=== PATIENT | male | born 1945 | race Caucasian/White ===

== ENCOUNTER 2017-05-24 12:51 | Inpatient (IN) | payer MEDICARE, BC ==
[~2017-05-24] VITALS: Ht 172.7 cm; Wt 106.6 kg
[2017-05-24] MEDS ORDERED: GABA-532 PO (13:11)
[2017-05-24] MEDS ORDERED: TRAZ-144 PO ×2 (13:11)
[2017-05-24] MEDS ORDERED: SERT100T PO (13:11)
[2017-05-24] MEDS ORDERED: OMEG-130 PO (13:11)
[2017-05-24] MEDS ORDERED: DONE5TAB34 PO (13:11)
[2017-05-24] MEDS ORDERED: LOSA100T15 PO (13:11)
[2017-05-24] MEDS ORDERED: CARV3.12 PO (13:11)
[2017-05-24] MEDS ORDERED: MEMA28CA PO (13:11)
[2017-05-24] MEDS ORDERED: DIVA125T2 PO (13:11)
[2017-05-24] MEDS ORDERED: QUET25TA PO (13:11)
[2017-05-24] MEDS ORDERED: CHOL200078 PO (13:11)
[2017-05-24] MEDS ORDERED: ASPI1CPM PO (13:11)
[2017-05-24] MEDS ORDERED: NAPH15DR62 OP (13:11)
[2017-05-24] MEDS ORDERED: ONDA4TAB5 PO (13:11)
[2017-05-24] MEDS ORDERED: ROSU10TA27 PO (13:11)
[2017-05-24] MEDS ORDERED: ACET-2605 PO (13:11)
[2017-05-24] MEDS ORDERED: FINA5TAB3 PO (13:11)
[2017-05-24] MEDS ORDERED: GUAI120S17 PO (13:11)
[2017-05-24] MEDS ORDERED: AMLO5TAB2 PO (13:11)
[2017-05-24] MEDS ORDERED: LOPE2TAB57 PO (13:11)
[2017-05-24 13:56] LABS: BASOPHILS % (AUTO) 0.4 % (0.0-2.0); EOSINOPHILS # (AUTO) 0.1 K/uL (0.0-0.7); EOSINOPHILS % (AUTO) 0.5 % (0.0-7.0); HEMATOCRIT 48.3 % (36.7-47.1); HEMOGLOBIN 16.2 g/dL (12.5-16.3); LYMPHOCYTES # (AUTO) 0.8 K/uL (20.0-40.0); LYMPHOCYTES % (AUTO) 7.1 % (20.5-51.5); MEAN CORPUSCULAR HEMOGLOBIN 31.9 uug (23.8-33.4); MEAN CORPUSCULAR HGB CONC 34 g/dL (32.5-36.3); MEAN CORPUSCULAR VOLUME 95.1 fL (73.0-96.2); MONOCYTES # (AUTO) 1.2 K/uL (2.0-10.0); MONOCYTES % (AUTO) 10.4 % (0.0-11.0); NEUTROPHILS % (AUTO) 81.6 % (38.5-71.5); PLATELET COUNT (AUTO) 190 K/uL (152-348); RED BLOOD CELL COUNT(AUTO) 5.08 MIL/uL (4.06-5.63); WHITE BLOOD COUNT (AUTO) 11.1 K/uL (3.6-10.2)
[2017-05-24 14:09] LABS: ALANINE AMINOTRANSFERASE 52 U/L (16-63); ALKALINE PHOSPHATASE 63 U/L (50-136); ASPARTATE AMINOTRANSFERASE 43 U/L (15-37); BILIRUBIN,DIRECT 0.2 mg/dL (0.0-0.2); BILIRUBIN,TOTAL 0.6 mg/dL (0.2-1.0); CARBON DIOXIDE 25 mmol/L (21-32); CHLORIDE 104 mmol/L (98-107); CREATININE 1.3 mg/dL (0.6-1.3); GLUCOSE 115 mg/dL (74-106); POTASSIUM 4.2 mmol/L (3.5-5.1); TOTAL PROTEIN, SERUM 7.7 g/dL (6.4-8.2); UREA NITROGEN, BLOOD 18 mg/dL (7-18)
--- NOTE | 2017-05-24 14:31 | NUR ---
Pt back from CT, NAD noted.
[2017-05-24 15:00] LABS: *BILIRUBIN,URIN NEGATIVE (NEGATIVE); *BLOOD, URINE NEGATIVE (NEGATIVE); *CLARITY,URINE SLIGHTLY CLOUDY (CLEAR); *COLOR,URINE YELLOW (YELLOW); *KETONES,URINE NEGATIVE (NEGATIVE); *PROTEIN,URINE 2+ (NEGATIVE); *UROBILINOGEN,URINE 0.2 E.U./dl (NORMAL); LEUKOCYTE ESTERASE ,URINE NEGATIVE (NEGATIVE); NITRITE, URINE NEGATIVE (NEGATIVE); UGLUCOSE NEGATIVE (NEGATIVE)
[2017-05-24 15:05] LABS: BACTERIA,URINE NONE SEEN /HPF (NONE SEEN); RBC,URINE 0-3 /HPF (0-3); SQUAMOUS EPITHELIAL CELL,UR FEW /HPF (NONE SEEN); WBC,URINE 0-3 /HPF (0-3)
--- NOTE | 2017-05-24 15:20 | NUR ---
SBAR report given to Kalyah via telephone. Pt resting in [facility] with NAD noted, pend tele admission.
--- NOTE | 2017-05-24 15:58 | NUR ---
Pt trans to tele floor, NAD noted.
[2017-05-24 16:11] VITALS: BP 197/93
--- NOTE | 2017-05-24 16:20 | NUR ---
Admitted 72 y/o male pt for fall, unknown etiology. Pt noted with agitation and verbally aggressive towards staff upon arrival. Pt verbalizing he wants to get up and leave and he does not need to be here. Pt disagreed. BP 197/99. Informed pt of his BP and encouraged him to calm down and not strain himself. Verbalized understanding. Pt connected to Tele, SR noted. Skin assessment done, skin intact. Oriented pt to room, call light, board, bed, and unit. Lacked interest. L hand 22gauge IV heplock intact and patent, flushed with NS. Fall precautions observed. Bed alarm on. Denies pain at this time. Will continue to monitor. Will give time to calm down. 1650: BP 170/80. Pt still with agitation when asked admission questions. Will give time to calm down. Encouraged to deep breath. 1710: BP 168/[address] Salcedo. Per Dr. Salcedo he will review and reconcile pt's medications. No new orders at this time.
[2017-05-24] MEDS ORDERED: ONDANSETRON HCL 4 MG TABLET PO SCH (17:45)
[2017-05-24] MEDS ORDERED: GABAPENTIN 100 MG CAPSULE PO SCH (17:45)
[2017-05-24] MEDS ORDERED: ONDANSETRON 4 MG/2 ML VIAL IV PRN (18:00)
[2017-05-24] MEDS ORDERED: ONDANSETRON HCL 4 MG TABLET PO PRN (18:00)
[2017-05-24] MEDS ORDERED: Z GUARD REMEDY PASTE 57 GM TUBE TOP PRN (18:00)
[2017-05-24] MEDS: IV NS 1000 ML 1,000 ML IV PRN (18:52)
--- NOTE | 2017-05-24 19:50 | NUR ---
Received patient awake in bed, no SOB denies chest pain. Sinus rhythm on the monitor. Patient is hyperverbal & anxious w/ IVF NS at 75 ml/hr noted. Complaining of left hand pain. IV line infiltrated. Started new IV line in left forearm w/ [id number]. IVF maintained.
[2017-05-24 20:00] VITALS: BP 172/80
[2017-05-24] MEDS: TRAZODONE 50 MG TABLET PO SCH (20:26)
[2017-05-24] MEDS: ATORVASTATIN 10 MG TABLET PO SCH (20:26)
[2017-05-24] MEDS: MEMANTINE HCL 10 MG TABLET PO SCH (20:27)
[2017-05-24] MEDS: ACETAMINOPHEN 325 MG TABLET PO PRN (20:27)
[2017-05-24] MEDS: hydrALAZINE HCL 25 MG TABLET PO PRN (20:27)
--- NOTE | 2017-05-24 20:45 | NUR ---
Patient is forgetful & screaming, attempted to remove his IV line. Reorientation provided, reminded that his IV line is his access for emergency medication. Patient verbalized understanding. Incontinent of urine, soaking wet diaper noted. Incontinence care provided, repositioned in bed. BP elevated 172/80. Hydralazine 25 mg po given. Will continue to monitor.
[2017-05-25] VITALS: BP 123/67
[2017-05-25 04:00] VITALS: BP 169/85
--- NOTE | 2017-05-25 04:00 | NUR ---
Patient still awake, anxious & removing IV line. Early dose of Seroquel p.o given. Sinus rhythm on the monitor.
[2017-05-25] MEDS: QUETIAPINE FUMARATE 25 MG TABLET PO SCH ×2 (04:18→16:14)
--- NOTE | 2017-05-25 07:00 | NUR ---
Sleeping comfortably, no acute resp distress, BP remains high 165/86. Sinus rhythm on the monitor. Will continue to monitor.
[2017-05-25 07:06] LABS: ALANINE AMINOTRANSFERASE 44 U/L (16-63); ALKALINE PHOSPHATASE 57 U/L (50-136); ASPARTATE AMINOTRANSFERASE 43 U/L (15-37); BILIRUBIN,TOTAL 0.5 mg/dL (0.2-1.0); CARBON DIOXIDE 25 mmol/L (21-32); CHLORIDE 105 mmol/L (98-107); CHOLESTEROL 173 mg/dL (<200); CREATININE 1.1 mg/dL (0.6-1.3); GLUCOSE 146 mg/dL (74-106); HDL CHOLESTEROL 32 mg/dL (40-60); MAGNESIUM 2.1 mg/dL (1.8-2.4); PHOSPHOROUS 3.6 mg/dL (2.5-4.9); POTASSIUM 3.9 mmol/L (3.5-5.1); TRIGLYCERIDES 241 MG/DL (30-150); UREA NITROGEN, BLOOD 18 mg/dL (7-18)
[2017-05-25 07:19] LABS: BASOPHILS % (AUTO) 0.3 % (0.0-2.0); EOSINOPHILS # (AUTO) 0.1 K/uL (0.0-0.7); EOSINOPHILS % (AUTO) 0.6 % (0.0-7.0); HEMATOCRIT 45.1 % (36.7-47.1); HEMOGLOBIN 15.3 g/dL (12.5-16.3); LYMPHOCYTES # (AUTO) 0.8 K/uL (20.0-40.0); LYMPHOCYTES % (AUTO) 8.6 % (20.5-51.5); MEAN CORPUSCULAR HEMOGLOBIN 32.1 uug (23.8-33.4); MEAN CORPUSCULAR HGB CONC 34 g/dL (32.5-36.3); MEAN CORPUSCULAR VOLUME 94.6 fL (73.0-96.2); MONOCYTES # (AUTO) 0.8 K/uL (2.0-10.0); NEUTROPHILS # (AUTO) 7.4 K/uL (1.8-8.9); NEUTROPHILS % (AUTO) 81.5 % (38.5-71.5); PLATELET COUNT (AUTO) 198 K/uL (152-348); RED BLOOD CELL COUNT(AUTO) 4.77 MIL/uL (4.06-5.63); WHITE BLOOD COUNT (AUTO) 9.1 K/uL (3.6-10.2)
[2017-05-25] MEDS: MEMANTINE HCL 10 MG TABLET PO SCH ×2 (08:23→20:00)
[2017-05-25] MEDS: FINASTERIDE 5 MG TABLET PO SCH (08:23)
[2017-05-25] MEDS: LOSARTAN POTASSIUM 50 MG TABLET PO SCH (08:23)
[2017-05-25] MEDS: CARVEDILOL 3.125 MG TABLET PO SCH (08:23)
[2017-05-25] MEDS: SERTRALINE HCL 100 MG TABLET PO SCH (08:23)
[2017-05-25] MEDS: DONEPEZIL 5 MG TABLET PO SCH (08:24)
[2017-05-25] MEDS: AMLODIPINE 5 MG TABLET PO SCH (08:24)
[2017-05-25] MEDS: IV NS 1000 ML 1,000 ML IV PRN ×2 (08:33→21:16)
[2017-05-25] MEDS: ASPIRIN/DIPYRIDAMOLE 25/200 MG CAPSULE PO SCH ×2 (09:48→16:13)
[2017-05-25] MEDS: DIVALPROEX 125 MG TABLET.DR PO SCH ×2 (10:08→16:14)
[2017-05-25 12:08] VITALS: BP 123/69
[2017-05-25 16:15] VITALS: BP 131/49
--- NOTE | 2017-05-25 19:06 | NUR ---
Pt remained stable during shift. Slept most of the day. Compliant with taking medication. Denies pain. Noted with agitation and resistive to care during ADL care. SR on Tele. Good apetite during meals. Monitored for possible syncopal episode causing him to fall prior to admission. No episode noted during shift. Pt in bed watching TV. LFA 20g IV infusing NS at 75ml/hr. Joe well. All needs met at this time. Will endorse to noc nurse.
[2017-05-25] MEDS: TRAZODONE 50 MG TABLET PO SCH (20:00)
[2017-05-25] MEDS: ATORVASTATIN 10 MG TABLET PO SCH (20:00)
--- NOTE | 2017-05-25 20:00 | NUR ---
Patient awake in bed, verbally responsive pleasantly confused. No SOB noted denies any pain. IVF NS infusing well. BP 138/66, Sinus rhythm on the monitor.
[2017-05-25 20:40] VITALS: BP 138/66
[2017-05-26] VITALS (7 sets, daily range): BP systolic 125–172; BP diastolic 63–87
[2017-05-26 06:53] LABS: BASOPHILS % (AUTO) 0.6 % (0.0-2.0); EOSINOPHILS # (AUTO) 0.1 K/uL (0.0-0.7); EOSINOPHILS % (AUTO) 1.8 % (0.0-7.0); HEMATOCRIT 43.2 % (36.7-47.1); HEMOGLOBIN 14.6 g/dL (12.5-16.3); LYMPHOCYTES # (AUTO) 1.1 K/uL (20.0-40.0); LYMPHOCYTES % (AUTO) 13.9 % (20.5-51.5); MEAN CORPUSCULAR HEMOGLOBIN 32.2 uug (23.8-33.4); MEAN CORPUSCULAR HGB CONC 34 g/dL (32.5-36.3); MEAN CORPUSCULAR VOLUME 95.7 fL (73.0-96.2); MONOCYTES % (AUTO) 12.1 % (0.0-11.0); NEUTROPHILS # (AUTO) 5.7 K/uL (1.8-8.9); NEUTROPHILS % (AUTO) 71.6 % (38.5-71.5); PLATELET COUNT (AUTO) 174 K/uL (152-348); RED BLOOD CELL COUNT(AUTO) 4.51 MIL/uL (4.06-5.63)
[2017-05-26 07:01] LABS: CARBON DIOXIDE 25 mmol/L (21-32); CHLORIDE 109 mmol/L (98-107); CREATININE 1.3 mg/dL (0.6-1.3); GLUCOSE 128 mg/dL (74-106); UREA NITROGEN, BLOOD 17 mg/dL (7-18)
[2017-05-26] MEDS: ASPIRIN/DIPYRIDAMOLE 25/200 MG CAPSULE PO SCH ×2 (08:33→16:27)
[2017-05-26] MEDS: MEMANTINE HCL 10 MG TABLET PO SCH ×2 (08:33→20:58)
[2017-05-26] MEDS: CARVEDILOL 3.125 MG TABLET PO SCH (08:39)
[2017-05-26] MEDS: AMLODIPINE 5 MG TABLET PO SCH (08:41)
[2017-05-26] MEDS: DIVALPROEX 125 MG TABLET.DR PO SCH ×2 (08:41→16:24)
[2017-05-26] MEDS: SERTRALINE HCL 100 MG TABLET PO SCH (08:41)
[2017-05-26] MEDS: DONEPEZIL 5 MG TABLET PO SCH (08:42)
[2017-05-26] MEDS: QUETIAPINE FUMARATE 25 MG TABLET PO SCH ×2 (08:42→16:24)
[2017-05-26] MEDS: LOSARTAN POTASSIUM 50 MG TABLET PO SCH (08:43)
[2017-05-26] MEDS: FINASTERIDE 5 MG TABLET PO SCH (08:43)
[2017-05-26] MEDS: IV NS 1000 ML 1,000 ML IV PRN (16:24)
--- NOTE | 2017-05-26 20:00 | NUR ---
BP noted to be elevated at this time. Will administer meds as ordered. No s/s of acute distress noted. Will continue to monitor.
[2017-05-26] MEDS: ATORVASTATIN 10 MG TABLET PO SCH (20:57)
[2017-05-26] MEDS: TRAZODONE 50 MG TABLET PO SCH (20:58)
[2017-05-26] MEDS: hydrALAZINE HCL 25 MG TABLET PO PRN (21:00)
--- NOTE | 2017-05-26 23:00 | NUR ---
BP controlled and noted to be 129/63. Jasmyn care and back care provided. Will continue to monitor.
[2017-05-27] MEDS: GABAPENTIN 100 MG CAPSULE PO PRN ×3 (02:38→11:44)
[2017-05-27 04:00] VITALS: BP 174/82
[2017-05-27] MEDS: hydrALAZINE HCL 25 MG TABLET PO PRN (06:36)
[2017-05-27] MEDS: IV NS 1000 ML 1,000 ML IV PRN (06:47)
[2017-05-27] MEDS ORDERED: CLONIDINE HCL 0.1 MG TABLET PO PRN (08:30)
[2017-05-27] MEDS: SERTRALINE HCL 100 MG TABLET PO SCH (08:38)
[2017-05-27] MEDS: CARVEDILOL 3.125 MG TABLET PO SCH (08:39)
[2017-05-27] MEDS: MEMANTINE HCL 10 MG TABLET PO SCH (08:40)
[2017-05-27] MEDS: DONEPEZIL 5 MG TABLET PO SCH (08:40)
[2017-05-27] MEDS: DIVALPROEX 125 MG TABLET.DR PO SCH (08:40)
[2017-05-27] MEDS: QUETIAPINE FUMARATE 25 MG TABLET PO SCH (08:40)
[2017-05-27] MEDS: FINASTERIDE 5 MG TABLET PO SCH (08:40)
[2017-05-27] MEDS: LOSARTAN POTASSIUM 50 MG TABLET PO SCH (08:40)
[2017-05-27] MEDS: AMLODIPINE 5 MG TABLET PO SCH (08:40)
[2017-05-27] MEDS: ASPIRIN/DIPYRIDAMOLE 25/200 MG CAPSULE PO SCH (08:41)
[2017-05-27 11:36] VITALS: BP 171/75
[2017-05-27] MEDS: ACETAMINOPHEN 325 MG TABLET PO PRN (11:42)
[2017-05-27] MEDS ORDERED: CLONIDINE HCL 0.2 MG TABLET PO ONE (12:15)
[2017-05-27 12:26] VITALS: BP 171/75
--- NOTE | 2017-05-27 15:30 | NUR ---
Pt discharge to [facility]. Pt is in no acute distress. IV taken out. Copy of discharge instruction given with ambulance. aware of discharge plan back to [facility].
== END 2017-05-27 15:20 | DRG 74 ==
LOC: ER 12:53 → TELE 15:55 → MED 05-26 13:50
PROVIDERS: ADMIT Nurse Practitioner Acute Care; ATTEND Nurse Practitioner Acute Care
DX: G90.8 Other disorders of autonomic nervous system (principal); D68.59 Other primary thrombophilia; G93.89 Other specified disorders of brain; W06.XXXA Fall from bed, initial encounter; F01.50 Vascular dementia, unspecified severity, without behavioral disturbance, psychotic disturbance, mood disturbance, and anxiety; D72.829 Elevated white blood cell count, unspecified; I69.319 Unspecified symptoms and signs involving cognitive functions following cerebral infarction; E78.5 Hyperlipidemia, unspecified; M19.90 Unspecified osteoarthritis, unspecified site; R29.6 Repeated falls; E66.9 Obesity, unspecified; Z68.35 Body mass index [BMI] 35.0-35.9, adult; I25.10 Atherosclerotic heart disease of native coronary artery without angina pectoris; K21.9 Gastro-esophageal reflux disease without esophagitis; M50.30 Other cervical disc degeneration, unspecified cervical region; M47.894 Other spondylosis, thoracic region; I10 Essential (primary) hypertension; Y92.092 Bedroom in other non-institutional residence as the place of occurrence of the external cause; Z79.899 Other long term (current) drug therapy
CPT/HCPCS: 36415; 70030-TC; 70450; 71045; 72125; 73502; 83735; 84100; 85025; 85730; 93005; 93307; 93880; 95819; 97165; A4663; J2405; J7030

== ENCOUNTER 2018-10-06 11:57 | Emergency (ER) | payer MEDICARE, BC ==
[~2018-10-06] VITALS: Ht 152.4 cm; Wt 106.6 kg
[~2018-10-06 11:57] MED LIST: ACET-2605 PO; AMLO5TAB9 PO; ASPI1CPM PO; CARV3.12 PO; CHOL200078 PO; DIVA125T2 PO; DONE5TAB34 PO; FINA5TAB3 PO; GABA-532 PO; GUAI120S17 PO; LOPE2TAB57 PO; LOSA100T31 PO; MEMA28CA PO; NAPH15DR62 OP; OMEG-130 PO; ONDA4TAB5 PO; QUET25TA PO; ROSU10TA29 PO; SERT100T PO; TRAZ-182 PO
[2018-10-06 12:31] LABS: BASOPHILS % (AUTO) 0.5 % (0.0-2.0); EOSINOPHILS % (AUTO) 0.5 % (0.0-7.0); HEMATOCRIT 43.9 % (36.7-47.1); HEMOGLOBIN 14.9 g/dL (12.5-16.3); LYMPHOCYTES # (AUTO) 0.9 K/uL (20.0-40.0); LYMPHOCYTES % (AUTO) 11.6 % (20.5-51.5); MEAN CORPUSCULAR HEMOGLOBIN 31.8 uug (23.8-33.4); MEAN CORPUSCULAR HGB CONC 34 g/dL (32.5-36.3); MEAN CORPUSCULAR VOLUME 93.7 fL (73.0-96.2); MONOCYTES # (AUTO) 0.8 K/uL (2.0-10.0); MONOCYTES % (AUTO) 10.3 % (0.0-11.0); NEUTROPHILS # (AUTO) 6.1 K/uL (1.8-8.9); NEUTROPHILS % (AUTO) 77.1 % (38.5-71.5); PLATELET COUNT (AUTO) 212 K/uL (152-348); RED BLOOD CELL COUNT(AUTO) 4.69 MIL/uL (4.06-5.63); WHITE BLOOD COUNT (AUTO) 7.9 K/uL (3.6-10.2)
[2018-10-06 12:36] LABS: CARBON DIOXIDE 23 mmol/L (21-32); CHLORIDE 107 mmol/L (98-107); CREATININE 1.4 mg/dL (0.6-1.3); GLUCOSE 131 mg/dL (74-106); POTASSIUM 4.4 mmol/L (3.5-5.1); UREA NITROGEN, BLOOD 19 mg/dL (7-18)
[2018-10-06 12:40] LABS: ALANINE AMINOTRANSFERASE 16 U/L (16-63); ALKALINE PHOSPHATASE 62 U/L (50-136); ASPARTATE AMINOTRANSFERASE 13 U/L (15-37); BILIRUBIN,DIRECT 0.1 mg/dL (0.0-0.2); BILIRUBIN,TOTAL 0.7 mg/dL (0.2-1.0); LIPASE 85 U/L (73-393); TOTAL PROTEIN, SERUM 7.6 g/dL (6.4-8.2)
[2018-10-06] MEDS ORDERED: POTA-88 PO (13:04)
[2018-10-06] MEDS ORDERED: TRAZ-182 PO (13:04)
[2018-10-06] MEDS ORDERED: QUET50TA PO (13:04)
[2018-10-06] MEDS ORDERED: MUPI22OI2 (13:04)
[2018-10-06] MEDS ORDERED: ROSU10TA2 PO (13:04)
[2018-10-06] MEDS ORDERED: [UNRECOGNIZED DRUG - CODE] PO (13:04)
[2018-10-06] MEDS ORDERED: GLY/85CR TP (13:04)
[2018-10-06] MEDS ORDERED: CARV6.252 PO (13:04)
--- NOTE | 2018-10-06 13:20 | NUR ---
Pt's at the bedside. Pt fed lunch by family.
[2018-10-06 14:30] LABS: *BILIRUBIN,URIN NEGATIVE (NEGATIVE); *BLOOD, URINE 3+ (NEGATIVE); *CLARITY,URINE CLOUDY (CLEAR); *COLOR,URINE YELLOW (YELLOW); *KETONES,URINE NEGATIVE (NEGATIVE); *UROBILINOGEN,URINE 0.2 E.U./dl (NORMAL); LEUKOCYTE ESTERASE ,URINE NEGATIVE (NEGATIVE); NITRITE, URINE NEGATIVE (NEGATIVE); PH,URINE 8.5 (5.0-8.0); UGLUCOSE NEGATIVE (NEGATIVE)
[2018-10-06 14:44] LABS: MUCUS,URINE MANY /LPF (0-FEW); RBC,URINE 80-100 /HPF (0-3); SQUAMOUS EPITHELIAL CELL,UR FEW /HPF (NONE SEEN); TRIPLE PHOSPHATE CRYSTAL,UR MODERATE /HPF (NONE SEEN)
--- NOTE | 2018-10-06 14:52 | NUR ---
ANNELISE Wiseman at the bedside for MSE.
--- NOTE | 2018-10-06 14:53 | NUR ---
Assissted pt to wheelchair w/ help of [facility] staff. Pt left ER in stable condition, all belongings sent w/ pt. ER Md was not able to give written instructions due to Exit care being down but verbal instructions provided.
[2018-10-06 15:01] VITALS: BP 132/70
== END 2018-10-06 15:02 | disposition home or self-care (01) ==
LOC: ER 11:57
DX: K59.00 Constipation, unspecified (principal); N40.0 Benign prostatic hyperplasia without lower urinary tract symptoms; N28.9 Disorder of kidney and ureter, unspecified; I10 Essential (primary) hypertension; E78.5 Hyperlipidemia, unspecified; Z88.2 Allergy status to sulfonamides; Z88.5 Allergy status to narcotic agent; Z79.899 Other long term (current) drug therapy; Z79.82 Long term (current) use of aspirin
CPT/HCPCS: 36415; 70030-TC; 83690; 85025; 87086; 93005; A4663